=== PATIENT | female | born 1970 | race Caucasian/White ===

== ENCOUNTER 2020-05-04 19:34 | Emergency (ER) | payer OTHER, SELFPAY ==
[2020-05-04] MEDS ORDERED: Lidocaine 1% (PF) 30 ML VIAL ONE (19:45)
[2020-05-04] MEDS ORDERED: Bacitracin 1 PK ONE (20:02)
== END 2020-05-04 20:12 | disposition home or self-care (01) ==
LOC: NAV ERS 19:34
DX: S61.011A Laceration without foreign body of right thumb without damage to nail, initial encounter (principal); W27.4XXA Contact with kitchen utensil, initial encounter; J45.909 Unspecified asthma, uncomplicated
CPT/HCPCS: 12001; 90471; J2001